=== PATIENT | female | born 1965 | race Caucasian/White ===

== ENCOUNTER 2020-11-27 14:34 | Inpatient (IN) | payer MEDICARE, OTHER ==
[~2020-11-27] VITALS: Ht 165.1 cm; Wt 74.8 kg
[~2020-11-27 14:34] MED LIST: BACTRIM DS TAB1 EACH PO; BASAGLAR K100 UNIT/1 SQ; CELEXA20 MG PO; CLEOCIN 150MG150 MG PO; CLEOCIN HCL300 MG PO; COREG6.25 MG PO; CYCLOBENZAPRINE10 MG PO; ESTRACE1 MG PO; GABAPENTIN600 MG PO; IBU800 MG PO; JANUVIA50 MG PO; KLOR-CON M2020 MEQ PO; LANTUS INS100 UTS/M1 SC; LASIX40 MG PO; NEURONTIN800 MG PO; NORCO 5-325 TA1 EACH PO; NORCO 7.5-3251 EACH PO; NOVOLOG MI100 UNIT/1 SQ; RISPERDAL1 MG PO; ROPINIROLE HCL2 MG PO; SEROQUEL100 MG PO; VITAMIN D31250 MCG PO; XANAX0.5 MG PO; ZANAFLEX4 M1 PO
[2020-11-27 16:36] LABS: HEMOGLOBIN 11.9 gm/dl (12.3-15.3); RED BLOOD COUNT 3.93 M/UL (4.00-5.10); WHITE BLOOD COUNT 3.8 K/UL (4.5-11.0)
[2020-11-27 16:59] LABS: BUN/CREATININE RATIO 9 (0-10)
[2020-11-27] MEDS ORDERED: VITAMIN D21250 MCG PO (23:56)
[2020-11-27] MEDS ORDERED: FERROUS SULFAT325 M2 PO (23:56)
[2020-11-27] MEDS ORDERED: NOVOLOG FL100 UNIT/1 INJ (23:57)
[2020-11-27] MEDS ORDERED: ULTRAM50 MG PO (23:58)
[2020-11-29 03:03] LABS: HEMOGLOBIN 10.8 gm/dl (12.3-15.3); RED BLOOD COUNT 3.67 M/UL (4.00-5.10); WHITE BLOOD COUNT 3.4 K/UL (4.5-11.0)
[2020-11-29 03:29] LABS: BUN/CREATININE RATIO 13 (0-10)
[2020-11-30 06:08] LABS: BUN/CREATININE RATIO 13 (0-10)
--- NOTE | 2020-11-30 10:49 | NUR ---
WENT TO [facility]
--- NOTE | 2020-12-01 12:50 | NUR ---
CHANGED RIGHT HIP DRSGN, PINROSE DRAIN NOTED, DRSGN WAS MODERATELY SATURATED WITH BRIGHT RED BLOOD NOTED , 4X4S OVER BOTH ENDS OF PINROSE, THEN ABD OVER THAT, AND TAPED IN PLACE , PT TOLERTATED WELL, BILAT HEEL DRSGNS ALSO CHANGED ORDERED.
--- NOTE | 2020-12-02 01:16 | NUR ---
PT ASK THE TECH FOR PAIN MEDS; WHEN I WAS ABLE TO LOOK IN THE CHART PT COULD GET HER PAIN MEDICATION, BUT HER SBP IS ONLY 91. I WILL REASSESS HER BP. WHEN I WENT BACK TO REASSESS BP, PT WAS ASLEEP. I WILL SEE IF SHE IS ABLE TO REST OR IF SHE WAKES UP NEEDING MEDICATION.
[2020-12-02 04:24] LABS: HEMOGLOBIN 11.6 gm/dl (12.3-15.3); RED BLOOD COUNT 3.87 M/UL (4.00-5.10); WHITE BLOOD COUNT 3.7 K/UL (4.5-11.0)
[2020-12-02 04:58] LABS: BUN/CREATININE RATIO 19 (0-10)
--- NOTE | 2020-12-02 19:08 | NUR ---
called Dr. Salgado for new order for break through pain. Order for lidocain patch Q12 prn and toradol 15mg IVP for tonight.
[2020-12-03 03:18] LABS: HEMOGLOBIN 12.1 gm/dl (12.3-15.3); RED BLOOD COUNT 4.04 M/UL (4.00-5.10); WHITE BLOOD COUNT 2.9 K/UL (4.5-11.0)
[2020-12-03 03:47] LABS: BUN/CREATININE RATIO 21 (0-10)
[2020-12-03] MEDS ORDERED: BACTRIM DS TAB1 EACH PO (09:17)
[2020-12-03] MEDS ORDERED: IBUPROFEN600 MG PO (09:17)
[2020-12-03] MEDS ORDERED: HYDROCODON-ACE1 EAC4 PO (14:34)
[2020-12-03] MEDS ORDERED: LEVOFLOXACIN500 MG PO (14:34)
[2020-12-03] MEDS ORDERED: NICOTINE PATCH1 EAC1 TOP (14:34)
[2020-12-03] MEDS ORDERED: ZYVOX600 MG PO (14:34)
== END 2020-12-03 15:53 | disposition home or self-care (01) | DRG 41 ==
LOC: ER1 14:34 → M/S 18:15 → PROG CARE 18:15 → CDU 18:15 → PROG CARE 11-28 07:10 → M/S 11-29 15:55
PROVIDERS: Family Medicine; Surgery; ADMIT Hospitalist
PROC: 0JBL0ZZ Excision of Right Upper Leg Subcutaneous Tissue and Fascia, Open Approach (ICD-10-PCS; principal; 2020-11-30 09:15)
DX: E11.42 Type 2 diabetes mellitus with diabetic polyneuropathy (principal); L97.429 Non-pressure chronic ulcer of left heel and midfoot with unspecified severity; L97.419 Non-pressure chronic ulcer of right heel and midfoot with unspecified severity; E11.622 Type 2 diabetes mellitus with other skin ulcer; L98.499 Non-pressure chronic ulcer of skin of other sites with unspecified severity; Z20.822 Contact with and (suspected) exposure to COVID-19; B95.2 Enterococcus as the cause of diseases classified elsewhere; B96.1 Klebsiella pneumoniae [K. pneumoniae] as the cause of diseases classified elsewhere; F17.210 Nicotine dependence, cigarettes, uncomplicated; E11.621 Type 2 diabetes mellitus with foot ulcer; I10 Essential (primary) hypertension; D50.9 Iron deficiency anemia, unspecified; E78.5 Hyperlipidemia, unspecified; J44.9 Chronic obstructive pulmonary disease, unspecified; E66.9 Obesity, unspecified; F41.9 Anxiety disorder, unspecified; Z98.51 Tubal ligation status; Z88.0 Allergy status to penicillin; Z68.27 Body mass index [BMI] 27.0-27.9, adult; Z90.710 Acquired absence of both cervix and uterus; Z79.4 Long term (current) use of insulin; Z79.899 Other long term (current) drug therapy
CPT/HCPCS: 36415; 71045; 72193; 78315; 80048; 80053; 80202; 81001; 82550; 82553; 82962; 83605; 84484; 85025; 85027; 85652; 86140; 87040; 87070; 87077; 87086; 87186; 87205; 90471; 93925; 94760; 99285; A6212; A9503; G0378; J1335; J1650; J1885; J2270; J3370; J7070; J7120; Q9967; U0002

== ENCOUNTER 2020-12-28 13:32 | Emergency (ER) | payer MEDICARE, OTHER ==
[~2020-12-28 13:32] MED LIST changes: +FERROUS SULFAT325 M2 PO; +HYDROCODON-ACE1 EAC4 PO; +IBUPROFEN600 MG PO; +LEVOFLOXACIN500 MG PO; +NICOTINE PATCH1 EAC1 TOP; +NOVOLOG FL100 UNIT/1 INJ; +ULTRAM50 MG PO; +VITAMIN D21250 MCG PO; +ZYVOX600 MG PO
== END 2020-12-28 15:10 | disposition home or self-care (01) ==
LOC: ER1 13:32
DX: Z48.817 Encounter for surgical aftercare following surgery on the skin and subcutaneous tissue (principal); F17.210 Nicotine dependence, cigarettes, uncomplicated
CPT/HCPCS: 99282

== ENCOUNTER → 2021-03-06 | Outpatient (CLI) | payer MEDICARE, OTHER ==
[~2021-03-06] MED LIST changes: +CLEOCIN HCL150 MG PO
== END ==
LOC: OPSV 12:00
DX: E11.621 Type 2 diabetes mellitus with foot ulcer (principal); L97.519 Non-pressure chronic ulcer of other part of right foot with unspecified severity; T81.31XA Disruption of external operation (surgical) wound, not elsewhere classified, initial encounter; I10 Essential (primary) hypertension; K74.60 Unspecified cirrhosis of liver; E11.42 Type 2 diabetes mellitus with diabetic polyneuropathy; F17.210 Nicotine dependence, cigarettes, uncomplicated; M54.16 Radiculopathy, lumbar region; F32.9 Major depressive disorder, single episode, unspecified; F41.9 Anxiety disorder, unspecified; R53.83 Other fatigue; J40 Bronchitis, not specified as acute or chronic; J06.9 Acute upper respiratory infection, unspecified
CPT/HCPCS: G0463

== ENCOUNTER 2021-04-22 16:44 | Emergency (ER) | payer MEDICARE, OTHER ==
[~2021-04-22 16:44] MED LIST changes: -CLEOCIN HCL150 MG PO
[2021-04-22 17:43] LABS: HEMOGLOBIN 11.9 gm/dl (12.3-15.3); RED BLOOD COUNT 3.94 M/UL (4.00-5.10); WHITE BLOOD COUNT 2.7 K/UL (4.5-11.0)
[2021-04-22 18:09] LABS: BUN/CREATININE RATIO 6 (0-10)
== END 2021-04-22 19:05 | disposition home or self-care (01) ==
LOC: ER1 16:44
PROVIDERS: Family Medicine
DX: R07.9 Chest pain, unspecified (principal); E11.65 Type 2 diabetes mellitus with hyperglycemia; E11.621 Type 2 diabetes mellitus with foot ulcer; I25.10 Atherosclerotic heart disease of native coronary artery without angina pectoris; E11.9 Type 2 diabetes mellitus without complications; I10 Essential (primary) hypertension; F17.210 Nicotine dependence, cigarettes, uncomplicated; Z88.0 Allergy status to penicillin; Z90.710 Acquired absence of both cervix and uterus
CPT/HCPCS: 71045; 80053; 82550; 82553; 83874; 84439; 84443; 84484; 85025; 93005; 99285

== ENCOUNTER 2021-04-26 10:20 | Emergency (ER) | payer MEDICARE, OTHER ==
[2021-04-26 12:33] LABS: HEMOGLOBIN 12.2 gm/dl (12.3-15.3); RED BLOOD COUNT 4.05 M/UL (4.00-5.10); WHITE BLOOD COUNT 2.8 K/UL (4.5-11.0)
[2021-04-26 13:08] LABS: BUN/CREATININE RATIO 11 (0-10)
[2021-04-26] MEDS ORDERED: CLEOCIN HCL150 MG PO (14:57)
== END 2021-04-26 15:17 | disposition home or self-care (01) ==
LOC: ER1 10:20
PROVIDERS: Physician Assistant Medical
DX: R07.9 Chest pain, unspecified (principal); E11.9 Type 2 diabetes mellitus without complications; I10 Essential (primary) hypertension; F17.210 Nicotine dependence, cigarettes, uncomplicated
CPT/HCPCS: 71045; 80053; 82550; 82553; 83874; 83880; 84484; 85025; 85652; 86140; 93005; 99285